=== PATIENT | female | born 1955 | race Caucasian/White ===

== ENCOUNTER 2021-12-03 17:56 | Inpatient (IN) | payer BC, MEDICAID ==
[~2021-12-03] VITALS: Ht 170.2 cm; Wt 108.6 kg
[2021-12-03 18:05] VITALS: BP_SYST 173
--- NOTE | 2021-12-03 18:05 | NUR ---
Patient to ER bed 2 to gown for evaluation. Side rails up. Report given to Kathy ROWAN.
--- NOTE | 2021-12-03 18:15 | NUR ---
ER at bedside examining patient.
--- NOTE | 2021-12-03 18:20 | NUR ---
Pt presents to ED c/o L sided weakness upon awakening this AM.Pt reports feeling normal at bedtime approx 2130. Pt admits to inability to ambulate or stand w/o assist, however, pt reports use of walker or cane to assist with ambulation at baseline. Pt denies significant due no PMD in 25 yrs per pt.
[2021-12-03 19:00] LABS: BASOPHILS # (AUTO) 0.1 K/uL (0.0-0.2); BASOPHILS % (AUTO) 1.3 % (0.0-2.0); EOSINOPHILS # (AUTO) 0.7 K/uL (0.0-0.4); EOSINOPHILS % (AUTO) 7.2 % (0.0-4.0); HEMATOCRIT 47.9 % (36-48); HEMOGLOBIN 16.5 g/dL (12.0-16.0); LYMPHOCYTES % (AUTO) 10.1 % (20.5-51.5); MEAN CORPUSCULAR HEMOGLOBIN 32 pg (27-31); MEAN CORPUSCULAR HGB CONC 35 % (32-36); MEAN CORPUSCULAR VOLUME 92 fL (79.0-98.0); MONOCYTES # (AUTO) 0.6 K/uL (0.0-1.0); MONOCYTES % (AUTO) 5.8 % (1.7-9.3); NEUTROPHILS # (AUTO) 7.7 K/uL (1.8-7.7); PLATELET COUNT (AUTO) 254 K/uL (130-430); RED BLOOD CELL COUNT(AUTO) 5.22 MIL/uL (4.2-6.2); RED CELL DISTRIBUTION WIDTH 13.4 % (9.0-15.0); WHITE BLOOD COUNT (AUTO) 10.2 K/uL (4.8-10.8)
[2021-12-03 19:10] LABS: ANION GAP 7 (5-15); CALCIUM 9.3 mg/dL (8.4-11.0); CHLORIDE 99 mmol/L (98-107); GLUCOSE 113 mg/dL (70-99); POTASSIUM 3.8 mmol/L (3.5-5.1); SODIUM SERUM 138 mmol/L (136-145); UREA NITROGEN, BLOOD 15 mg/dL (8-21)
[2021-12-03 19:11] LABS: GFR AFRICAN AMERICAN 92 mL/min (>90)
[2021-12-03 19:19] LABS: ALANINE AMINOTRANSFERASE 32 U/L (12-78); ALBUMIN 3.6 g/dL (3.4-4.8); ASPARTATE AMINOTRANSFERASE 19 U/L (10-37); TOTAL BILIRUBIN 0.4 mg/dL (0.0-1.0)
[2021-12-03 19:21] LABS: ALCOHOL, BLOOD < 3 mg/dL (<10)
[2021-12-03 19:25] LABS: NEUTROPHILS % (AUTO) 75.6 % (40.0-70.0)
[2021-12-03] MEDS ORDERED: iohexoL 350 mgI/mL, 100 ML INFUS..BTL IV ONE (20:02)
[2021-12-03] MEDS ORDERED: ASPIRIN 325 MG TABLET PO ONE (21:15)
--- NOTE | 2021-12-03 23:53 | NUR ---
Admit bed requested Patient will be admitted to care of Dr.A WOODRUFF. Admitted to TELE unit. Diagnosis CVA Inpatient (Yes or No) YES Observation (Yes or No) NO Orientation concerns or request close to nursing station (Yes or No) NO Covid Status PENDING On vent or bipap NO Isolation requirements NO Needs a sitter NO From Home (Yes or if No enter name of facility) YES Requires Dialysis (Yes or No) NO Med Rec Completed (Yes of No) PENDING
--- NOTE | 2021-12-04 01:23 | NUR ---
ADMISSION NOTE Received patient from ER via gurney. Patient admitted with diagnosis of CVA. Patient is awake, alert, oriented X 4. Patient oriented to hospital room, call light, toileting, pain management and safety-teach back done. Patient informed their room number is 106A. Personal belongings checked and Belongings List documented. Call light within reach.
[2021-12-04 01:24] VITALS: BP_SYST 133
[2021-12-04 06:38] LABS: CALCIUM 8.9 mg/dL (8.4-11.0); CREATININE 0.72 mg/dL (0.55-1.30); POTASSIUM 3.7 mmol/L (3.5-5.1)
[2021-12-04 06:43] LABS: ALBUMIN 3.2 g/dL (3.4-4.8); TOTAL BILIRUBIN 0.3 mg/dL (0.0-1.0)
--- NOTE | 2021-12-04 06:51 | NUR ---
Closing note Pt resting in bed, eyes closed. No s/s of respiratory distress. Breathing even and unlabored. IV site intact and patent. Fall and safety precautions in place with bed in lowest position, bed alarm on, and call light within reach
[2021-12-04 06:52] LABS: BASOPHILS # (AUTO) 0.1 K/uL (0.0-0.2); BASOPHILS % (AUTO) 0.7 % (0.0-2.0); EOSINOPHILS # (AUTO) 0.7 K/uL (0.0-0.4); EOSINOPHILS % (AUTO) 8.2 % (0.0-4.0); HEMATOCRIT 45.5 % (36-48); HEMOGLOBIN 15.8 g/dL (12.0-16.0); LYMPHOCYTES # (AUTO) 1.4 K/uL (1.0-5.5); LYMPHOCYTES % (AUTO) 15.9 % (20.5-51.5); MEAN CORPUSCULAR HEMOGLOBIN 32 pg (27-31); MEAN CORPUSCULAR HGB CONC 35 % (32-36); MEAN CORPUSCULAR VOLUME 92 fL (79.0-98.0); MONOCYTES # (AUTO) 0.8 K/uL (0.0-1.0); MONOCYTES % (AUTO) 9.2 % (1.7-9.3); NEUTROPHILS # (AUTO) 5.8 K/uL (1.8-7.7); PLATELET COUNT (AUTO) 221 K/uL (130-430); RED BLOOD CELL COUNT(AUTO) 4.97 MIL/uL (4.2-6.2); RED CELL DISTRIBUTION WIDTH 13.5 % (9.0-15.0); WHITE BLOOD COUNT (AUTO) 8.8 K/uL (4.8-10.8)
--- NOTE | 2021-12-04 07:30 | NUR ---
OPENING NOTES: PATIENT IS RESTING IN BED QUIETLY. AAOX4 ABLE TO MAKE NEEDS KNOWN. NO C/O PAIN OR DISTRESS AT THIS TIME. EXPLAINED POC TO PATIENT AND SHE VERBALIZED UNDERSTANDING. LEFT ARM HAND MEDIA ASSISTANT WEAKER THAN RIGHT BUT NO DRIFT. LLE WEAKER THAN RLE BUT NO DRIFT. BED IN LOW AND LOCK POSITION. BED ALARM ON. CALL LIGHT AND BEDSIDE COMMODE WITHIN REACH. STABLE CONDITION AT THIS TIME.
[2021-12-04 08:00] VITALS: BP_SYST 131
--- NOTE | 2021-12-04 08:45 | NUR ---
BREAKER OFF ACSW Yuki received a generated Social Service referral for "Pt at suicidal risk". ACSW reviewed patient notes and assessments and located the following from the admission assessment: Family/Social Support Needs- NONE Wishes to be - NO Suicide Thoughts- NO [place]-Suicide Severity Rating Assessment Initiated - NO Refer to Records Management Manager for Suicide Risk- YES ACSW consulted with director of business applications Lora to inquire into assessment who shared patient was not a suicide risk nor was there a sittier in place. director of business applications expresses this is a mistake on assessment. ACSW will continue to be available as needed
[2021-12-04] MEDS ORDERED: NICOTINE 14 MG/24 HR PATCH.TD24 TD SCH (09:00)
[2021-12-04] MEDS ORDERED: ACETAMINOPHEN 325 MG TABLET PO PRN ×2 (09:45→10:15)
[2021-12-04] MEDS ORDERED: ONDANSETRON HCL 4 MG/2 ML VIAL IVP PRN (09:45)
[2021-12-04] MEDS ORDERED: HYDROcodone/ACETAMIN 10-325 MG TAB PO PRN (09:45)
[2021-12-04] MEDS ORDERED: NALOXONE HCL 0.4 MG/ML AMP (NARCAN) IVP PRN ×2 (09:45)
[2021-12-04] MEDS ORDERED: HYDROcodone/ACETAMIN 5-325 MG TAB (NORCO/ VICODIN) PO PRN (09:45)
[2021-12-04] MEDS ORDERED: LORazepam 1 MG TABLET PO ONE (11:00)
--- NOTE | 2021-12-04 11:28 | NUR ---
OFF TO MRI: LEFT THE UNIT IN A STABLE CONDITION TO MRI.
--- NOTE | 2021-12-04 12:40 | NUR ---
RETURNED FROM MRI: STABLE CONDITION AT THIS TIME.
[2021-12-04 12:49] VITALS: BP_SYST 129
--- NOTE | 2021-12-04 13:07 | NUR ---
DR. STALEY CALLED: FELICIA ROWAN SPOKE WITH DR STALEY REGARDING MRI RESULT. ORDERED ASPIRIN 81 MG PO QD. STATES HE WILL VISIT PATIENT TODAY.
[2021-12-04] MEDS ORDERED: NORMAL SALINE 5 ML DISP.SYRIN IVF SCH ×2 (14:00)
[2021-12-04] MEDS ORDERED: ASPIRIN 81 MG TAB.CHEW PO ONE (14:00)
[2021-12-04 16:00] VITALS: BP_SYST 134
--- NOTE | 2021-12-04 18:30 | NUR ---
CLOSING NOTES: PATIENT IS SITTING AT THE SIDE OF THE BED EATING HER LUNCH. NO ADDITIONAL DISTRESS NOTED. AT THE BEDSIDE. STABLE CONDITION AT THIS TIME.
--- NOTE | 2021-12-04 20:05 | NUR ---
Dr Dietrich at bedside to see the pt, states pt is clear for discharge
--- NOTE | 2021-12-04 20:30 | NUR ---
Informed Dr Mackay d/c clearance from Dr Kaur DC ordered received
[2021-12-04] MEDS ORDERED: ASA81 PO (20:39)
[2021-12-04] MEDS ORDERED: ASPI-859 PO (20:40)
[2021-12-04 20:42] VITALS: BP_SYST 126
--- NOTE | 2021-12-04 21:25 | NUR ---
D/C Patient Patient given medication reconciliation form and D/C instructions. Exit Care provided. Patient verbalized understanding. MD discussed with patient the results and treatment provided. Patient in stable condition, ID band removed. IV catheter removed, intact and dressing applied, no active bleeding. Rx of given. Patient educated on pain management. All belongings sent with patient.
[2021-12-05] MEDS ORDERED: ASPIRIN 81 MG TAB.CHEW PO SCH (09:00)
== END 2021-12-04 21:25 | disposition home or self-care (01) | DRG 65 ==
LOC: SED 17:56 → STU 23:47
PROVIDERS: ADMIT Preventive Medicine Preventive Medicine/Occupational Environmental Medicine; ATTEND Preventive Medicine Preventive Medicine/Occupational Environmental Medicine
DX: I63.9 Cerebral infarction, unspecified (principal); G81.94 Hemiplegia, unspecified affecting left nondominant side; J44.9 Chronic obstructive pulmonary disease, unspecified; R27.0 Ataxia, unspecified; I10 Essential (primary) hypertension; R73.9 Hyperglycemia, unspecified; Z20.822 Contact with and (suspected) exposure to COVID-19; Z72.0 Tobacco use
CPT/HCPCS: 36415; 70450-TC; 70496; 70498; 70551; 71045; 76376; 80053; 83605; 84484; 85025; 87040; 93005; 93306; 99291; G0378; G0482; Q9967